=== PATIENT | female | born 1955 | race Caucasian/White ===

== ENCOUNTER → 2017-03-14 | Outpatient (CLI) | payer OTHER, BC ==
[~2017-03-14] MED LIST: OXYC5TAB PO; TRAM50TA2 PO; WARF2TAB PO
--- NOTE | 2017-03-14 16:21 | RADRPT ---
PROCEDURE: Left knee radiographs. CLINICAL INDICATION: Left knee pain. TECHNIQUE: Four views. Weight bearing. Frontal, lateral, oblique, and patellar view. COMPARISON: No prior studies are available for comparison. FINDINGS: There is no fracture or dislocation. The soft tissues are normal. There are degenerative changes with osteophytes arising from all 3 joint compartment margins. There is lateral joint compartment narrowing, subarticular sclerosis, and deformity. There is no lytic or blastic lesion. A surgical screw is present in the tibial tubercle region. IMPRESSION: 1. Severe degenerative changes of the left knee. 2. Prior surgery with screw in the tibial tubercle region. RPTAT: QQ .Kevin Benites MD, MD Date Time Electronically viewed and signed by .Kevin Benites MD, on 03/14/2017 16:20 .R/
--- NOTE | 2017-03-15 04:04 | HKNOTE ---
DATE OF SERVICE: 03/14/2017 CHIEF COMPLAINT: Left knee pain. HISTORY OF PRESENT ILLNESS: This is a 61-year-old female who is complaining of chronic left knee pa in. She states that the pain has been worsening over the last year. She has had pain from a young age. She has had a previous left patellar ligament reconstruction. She states that she has instabi lity with ambulation. She has difficulty going up and down stairs. She does not use any assist dev ices. She does not use any braces. She has had previous physical therapy with no pain relief. She takes ibuprofen with no pain relief. She denies any back pain. She had a previous left total hip arthroplasty by Dr. Justin Roldan. She has pain in the left hip ever since her surgery. Otherwise, s he has no complaints. GAIT: Antalgic gait, no use of assist device. LEFT KNEE EXAMINATION: Previous medial incision that has healed, 0 to 120 degrees range of motion, stable to varus and valgus stress, negative Dilshad, negative anterior drawer, negative posterior dr awer, tender over the lateral joint line. IMAGING: X-rays, left knee: Multiple views of the left knee taken in the office demonstrate tricom partmental osteoarthritis. There is a valgus alignment with degenerative changes mostly in the late ral compartment with [id number] arthritic changes. There are also peripheral osteophytes of the p atellofemoral joint and the medial compartment. There is previous screw at the tibial tubercle. Th ere is also evidence of patella baja. IMPRESSION: A 61-year-old female with left knee osteoarthritis. PLAN: We will request authorization for a left total knee arthroplasty. She will return in 6 weeks for preoperative planning. Dictated By: SONIYA IRELAND/KWESI Conf#: [id number] DID#: [id number]
== END | disposition home or self-care (01) ==
LOC: HKI 15:28
PROVIDERS: ATTEND Orthopaedic Surgery Adult Reconstructive Orthopaedic Surgery
DX: M17.12 Unilateral primary osteoarthritis, left knee (principal); Z96.642 Presence of left artificial hip joint
CPT/HCPCS: 73564; Z7500; G0463

== ENCOUNTER 2017-05-02 11:18 | Emergency (ER) | payer BC, OTHER ==
[~2017-05-02] VITALS: Ht 167.6 cm
[2017-05-02 11:22] VITALS: Ht 167.6 cm
[2017-05-02] MEDS ORDERED: KETOROLAC 30 MG INJ IM STA (12:46)
--- NOTE | 2017-05-02 13:35 | RADRPT ---
PROCEDURE: XR Knee. CLINICAL INDICATION: Left knee pain TECHNIQUE: 3 images of the left knee are available for review. COMPARISON: Radiographs of the left knee March 14, 2017 FINDINGS: There is no evidence of acute fracture. There is genu valgus with tricompartmental osteoarthrosis, severe in the lateral femorotibial compar tment and mild to moderate in the medial and patellofemoral compartments. There is a partially cannulated screw at the proximal tibia from previous surgery. The soft tissues appear grossly unremarkable. IMPRESSION: 1. No radiographic evidence of acute osseous abnormality. 2. Tricompartmental osteoarthrosis, severe and predominant in the lateral femorotibial compartment w ith associated genu valgus. RPTAT: UU .Braden Decker MD, Date Time Electronically viewed and signed by .Braden Decker MD, on 05/02/2017 13:35 .K/
--- NOTE | 2017-05-02 13:42 | ERD ---
ER Documentation Chief Complaint Chief Complaint left knee pain x 3 days *refuses to give weight* HPI This is a 61-year-old female who presents the emergency department today complaining of left knee pain. 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 States she is concerned because she bent down approximately 1 week ago and she felt something "rip" in her knee. States that she takes Naprosyn daily for her pain. Denies any fevers or chills. She has pain with ambulation. ROS All systems reviewed and are negative except as per history of present illness. Medications Home Meds Active Scripts Naproxen* (Naprosyn*) 500 Mg Tablet, 500 MG PO BID Y for PAIN AND/OR INFLAMMATION, #30 TAB Prov:TRISTAN RINCON PA-C 05/02/17 Reported Medications Tramadol HCl (Tramadol HCl) 50 Mg Tablet, 50 MG PO [id number] PRN 12/28/11 Oxycodone Hcl (Oxycodone Hcl) 5 Mg Tablet, 5 MG PO [id number] PRN 12/28/11 Warfarin Sodium* (Coumadin*) 2 Mg Tablet, 2 MG PO DAILY 12/28/11 Allergies Allergies: Coded Allergies: Sulfa(Sulfonamide Antibiotics) (Verified Allergy, Unknown, 12/24/11) Uncoded Allergies: SULFA (Allergy, UNKNOWN, 12/22/11) PMhx/Soc History of Surgery: Yes (R [facility]IS[facility]) Anesthesia Reaction: No Hx Neurological Disorder: No Hx Respiratory Disorders: No Hx Cardiac Disorders: No Hx Psychiatric Problems: No Hx Miscellaneous Medical Probl: Yes (OA,DJD,SULFA ALLERGY) Hx Alcohol Use: No Hx Substance Use: No Hx Tobacco Use: No Smoking Status: Never smoker Physical Exam Vitals Vital Signs Date Time Temp Pulse Resp B/P Pulse Ox O2 Delivery O2 Flow Rate FiO2 05/02/17 11:22 97.8 63 20 130/79 97 Physical Exam Const: pleasant, sitting in wheelchair, NAD Head: Atraumatic Eyes: Normal Conjunctiva ENT: Normal External Ears, Nose and Mouth. Neck: Full range of motion..~ No meningismus. Resp: Clear to auscultation bilaterally Cardio: Regular rate and rhythm, no murmurs Abd: Soft, non tender, non distended. Normal bowel sounds Skin: No petechiae or rashes MSk: Left knee with no obvious deformity. No effusion. No ecchymosis. Pain with full flexion along medial joint line. Pulses 2+. Distal neurovascularly intact. Neur: Awake and alert Psych: Normal Mood and Affect Results 24 hrs Current Medications Medications (Trade) Dose Ordered Sig/Prabhakar Route PRN Reason Start Time Stop Time Status Last Admin Dose Admin Ketorolac Tromethamine (Toradol) 30 mg ONCE STAT IM 05/02/17 12:46 05/02/17 12:48 DC 05/02/17 13:22 DIAGNOSTIC IMAGING REPORT Patient: SHANTI FISH : 1955 Age: 61 Sex: F MR #: [id number] DOS: 05/02/17 0000 Ordering MD: TRISTAN RINCON PA-C Location: [facility] Room/Bed: PROCEDURE: XR Knee. CLINICAL INDICATION: Left knee pain TECHNIQUE: 3 images of the left knee are available for review. COMPARISON: Radiographs of the left knee March 14, 2017 FINDINGS: There is no evidence of acute fracture. There is genu valgus with tricompartmental osteoarthrosis, severe in the lateral femorotibial compartment and mild to moderate in the medial and patellofemoral compartments. There is a partially cannulated screw at the proximal tibia from previous surgery. The soft tissues appear grossly unremarkable. IMPRESSION: 1. No radiographic evidence of acute osseous abnormality. 2. Tricompartmental osteoarthrosis, severe and predominant in the lateral femorotibial compartment with associated genu valgus. RPTAT: UU .Braden Decker MD, MD Date Time Electronically viewed and signed by .Braden Decker MD, MD on 05/02/2017 13: 35 .K/ CC: TRISTAN RINCON PA-C Procedures/MDM This is a 61-year-old female who presents the emergency department today complaining of left knee pain after bending down approximately 1 week ago and feeling "something rip". Patient has a history of chronic knee pain for which she is supposed to be scheduled for a total knee replacement. I did see a service note from Dr. Thibodeaux back in February 2017 in which patient had images of the left knee at that time and multiple views taken in the office that demonstrated tricompartmental arthritis. There was also evidence of patella baja. As well as the previous screw at the tibial tubercle. Patient complains of new injury and the fact that she does have some slipping on physical exam along the medial joint line I did repeat images today Per the radiology report images of the left knee show no radiographic evidence of acute osseous abnormality. There is no evidence of acute fracture. There is genu valgus with tricompartmental osteoarthritis severe in the lateral femoral-tibial compartment and mild to moderate medial and patellofemoral compartments. There is a partially cannulated screw at the proximal tibia from previous surgery. Imaging is essentially unchanged from previous visits. There is no acute fracture or dislocation. Symptoms at this time most consistent with acute on chronic knee pain. Given Toradol here in the emergency department. She will begin a prescription for Naprosyn for home as well as a knee immobilizer and crutches to help ambulate. She was distally neurovascularly intact pre-and post knee immobilizer. She was instructed to follow-up with her surgeon for further evaluation and management. She is afebrile and otherwise well-appearing. Have low suspicion for septic joint or gout. Plan to the patient given the location of her pain may have ligamentous or damage to her cartilage but this is not seen that would be seen on x-rays. I have explained that she would need further evaluation by her supplier specialist and possibly MRI. Patient was in understanding. At this time the patient is stable for discharge and outpatient management. Patient should follow up with their PCP in the next 1-2 days. They may return to the emergency department sooner for any persistent or worsening of symptoms. Patient understood and agreed with the plan. Departure Diagnosis: Primary Impression: Knee injury Encounter type: initial encounter Laterality: left Qualified Code: S89.92XA - Injury of left knee, initial encounter Condition: Fair TRISTAN RINCON PA-C May 02, 2017 13:42
[2017-05-02] MEDS ORDERED: NAPR-260 PO (13:43)
== END 2017-05-02 15:00 | disposition home or self-care (01) ==
LOC: FTE 11:18
DX: S89.92XA Unspecified injury of left lower leg, initial encounter (principal); X58.XXXA Exposure to other specified factors, initial encounter; Y92.9 Unspecified place or not applicable; Z79.01 Long term (current) use of anticoagulants
CPT/HCPCS: 29505; 73562; 96372; J1885; Z7502

== ENCOUNTER → 2017-09-05 | Outpatient (CLI) | END | disposition home or self-care (01) ==

== ENCOUNTER 2017-09-25 18:08 | Emergency (ER) | END 2017-09-25 23:03 | disposition home or self-care (01) ==

== ENCOUNTER → 2017-11-28 | Outpatient (CLI) | END | disposition home or self-care (01) ==

== ENCOUNTER 2017-11-29 11:00 | Inpatient (IN) | END 2017-12-03 17:00 | disposition home health service (06) | DRG 470 ==

== ENCOUNTER → 2017-12-13 | Outpatient (CLI) | END | disposition home or self-care (01) ==

== ENCOUNTER → 2018-01-09 | Outpatient (CLI) | END | disposition home or self-care (01) ==

== ENCOUNTER → 2018-03-05 | Outpatient (CLI) | END | disposition home or self-care (01) ==